=== PATIENT | male | born 1985 | race African-American/Black ===

== ENCOUNTER 2020-05-30 12:46 | Inpatient (IN) ==
[2020-05-30 13:29] LABS: Basophils % 0.5 %; Eosinophils % 0.2 %; Hematocrit 48.5 % (37.5-50.1); Hemoglobin 16.2 g/dL (12.9-16.9); Immature Granulocytes % 0.3 % (0-4); Lymphocytes # 1.4 K/mcL (0.6-4.6); Lymphocytes % 22.2 %; Mean Corpuscular HGB Conc 33.4 g/dL (31.6-35.5); Mean Corpuscular Volume 98.8 fL (83.0-100.0); Mean Platelet Volume 10.1 fL (9.4-12.4); Monocytes # 0.5 K/mcL (0.0-1.3); Monocytes % 8.6 %; Neutrophils # 4.1 K/mcL (1.6-8.9); Platelet Count 208 K/mcL (140-400); Red Blood Count 4.91 M/mcL (4.19-5.50); Red Cell Distribution Width 11.3 % (11.5-14.5); Segmented Neutrophils % 68.2 %; White Blood Count 6.1 K/mcL (4.3-11.1)
[2020-05-30 13:45] LABS: Acetaminophen < 10 mcg/mL (10-20); BUN/Creatinine Ratio 17 (6-26); Blood Urea Nitrogen 19 mg/dL (6-20); Calcium 9.4 mg/dL (8.6-10.3); Carbon Dioxide 31 mEq/L (23-29); Chloride 102 mEq/L (98-107); Ethanol < 10 mg/dL (Less than 10); Glucose 100 mg/dL (70-105); Osmolality,Calculated 288 (280-300); Potassium 4.2 mEq/L (3.5-5.1); Salicylate < 2.5 mg/dL (15.0-30.0); Sodium 138 mEq/L (136-145); eGFR For African Americans > 60 (> 60); eGFR For Non-African Americans > 60 (> 60)
[2020-05-30 14:12] LABS: Bacteria,Urine Few per hpf (None-Few); Bilirubin,Urine Negative (Negative); Blood,Urine Negative (Negative); Clarity,Urine Turbid (Clear); Color,Urine Yellow (Yellow); Glucose,Urine (UA) Normal (Normal); Ketones,Urine Negative (Negative); Leukocyte Esterase,Urine Moderate (Negative); Mucus,Urine Moderate per lpf (None-Few); Nitrite,Urine Negative (Negative); Protein,Urine 100 mg/dL (Neg-Trace); Specific Gravity,Urine > 1.030 (1.010-1.025); Squamous Epithelial Cell,Urine Few per hpf (None-Few); WBC,Urine 30-50 per hpf (0-3)
[2020-05-30 14:20] LABS: Amphetamine Screen,Urine Positive ng/mL (Cutoff=1000); Barbiturate Screen,Urine Negative ng/mL (Cutoff=200); Benzodiazepines Screen,Urine Negative ng/mL (Cutoff=200); Cannabinoid Screen,Urine Positive ng/mL (Cutoff = 50); Cocaine Screen,Urine Negative ng/mL (Cutoff= 300); Opiate Screen,Urine Negative ng/mL (Cutoff=300); Phencyclidine Screen,Urine Negative ng/mL (Cutoff=25)
[2020-05-30] MEDS ORDERED: *HR* LORazepam 2 MG/ML VIAL IM ONE (17:52)
[2020-05-30] MEDS ORDERED: OLANZapine 10 MG VIAL IM ONE (17:52)
[2020-05-30] MEDS ORDERED: Water for inj. (sterile) 10 ML ONE (17:54)
[2020-05-30] MEDS ORDERED: Acetaminophen 325 MG TABLET PO PRN (20:07)
[2020-05-30] MEDS ORDERED: traZODone 50 MG TABLET PO PRN (20:07)
[2020-05-30] MEDS ORDERED: Mag Hydrox/Al Hydrox/Simeth 30 ML UDC PO PRN (20:07)
[2020-05-30] MEDS ORDERED: Haloperidol Lactate 5 MG/ML VIAL IM PRN (20:07)
[2020-05-30] MEDS ORDERED: haloperidoL 5 MG TABLET PO PRN (20:07)
[2020-05-30] MEDS ORDERED: Nicotine 2 MG GUM BC PRN (20:07)
[2020-05-30] MEDS ORDERED: *HR* LORazepam 1 MG TABLET PO PRN (20:07)
[2020-05-30] MEDS ORDERED: MOM Conc 10 ML UD.LIQ PO PRN (20:07)
[2020-05-30] MEDS ORDERED: *HR* LORazepam 2 MG/ML VIAL IM PRN (20:07)
[2020-05-30] MEDS: hydrOXYzine pamoate 25 MG CAPSULE PO PRN (22:19)
[2020-05-31] MEDS ORDERED: QUEtiapine Fumarate 100 MG TABLET PO PRN (13:32)
[2020-05-31] MEDS ORDERED: NALOXONE HCL SL SCH (14:00)
[2020-05-31] MEDS ORDERED: BUPRENORPHINE HCL SL SCH (14:00)
[2020-05-31] MEDS: ARIPiprazole 5 MG TABLET PO SCH (14:32)
[2020-05-31] MEDS: hydrOXYzine pamoate 25 MG CAPSULE PO PRN (21:01)
[2020-05-31 21:46] VITALS: BP 120/81
[2020-06-01] MEDS: ARIPiprazole 5 MG TABLET PO SCH (10:56)
== END 2020-06-01 13:47 | disposition home or self-care (01) | DRG 751 ==
LOC: EMEROOARM 12:46 → 1ANU 20:06
PROVIDERS: ADMIT Psychiatry & Neurology Psychiatry; ATTEND Psychiatry & Neurology Psychiatry